=== PATIENT | male | born 1955 | race Caucasian/White ===

== ENCOUNTER 2020-09-06 17:41 | Emergency (ER) | payer MEDICARE ==
[2020-09-06] MEDS ORDERED: BENADRYL 50MG C50 MG PO (22:51)
[2020-09-06] MEDS ORDERED: PREDNISONE 10 M10 MG PO (22:51)
== END 2020-09-06 23:30 | disposition home or self-care (01) ==
LOC: ER1 17:41
DX: R21 Rash and other nonspecific skin eruption (principal); E11.9 Type 2 diabetes mellitus without complications; I10 Essential (primary) hypertension; E78.5 Hyperlipidemia, unspecified
CPT/HCPCS: 96372; 99282; J1100